=== PATIENT | female | born 1970 | race Caucasian/White ===

== ENCOUNTER → 2017-10-20 | Outpatient (CLI) | payer OTHER ==
[~2017-10-20] MED LIST: DULO60CA56 PO; ESCI20TA38 PO; EZE10 PO; LEVO100T95 PO; LOR5/325 PO; OMEP-114 PO
--- NOTE | 2017-10-20 17:08 | RADIOLOGY IMAGING REPORT ---
FACILITY: [facility] PATIENT NAME: Zayda Chery : 1970 MR: [id number] V: [id number] EXAM DATE: ORDERING PHYSICIAN: RO LOVE TECHNOLOGIST: Location: [facility] [place] Patient: Zayda Chery : 1970 Visit/Account:[id number] Date of Sevice: 10/20/2017 Venous Doppler ultrasound right lower extremity Indication: Right leg pain. Posterior knee bulge.. Comparison: None Available Findings: Duplex Doppler and color flow imaging was performed. The common femoral, femoral, and popl iteal veins are all patent and compressible with normal Doppler wave forms. There are normal respons es to augmentation. The posterior tibial and peroneal veins are patent in the calf. The proximal greater saphenous vein i s also normal. The soft tissues of the posterior knee does show prominent varicose veins which are patent. Subcutane ous tissues are otherwise unremarkable. IMPRESSION: 1. No evidence of deep venous thrombosis of the right. lower extremity. 2. The posterior soft tissues of the knee does show prominent varicose veins which appear patent. Report Dictated By: Trevon Kincaid at 10/20/2017 5:02 PM Report E-Signed By: Trevon Kincaid at 10/20/2017 5:04 PM WSN:[id number]
== END ==
LOC: US 15:18
PROVIDERS: ATTEND Nurse Practitioner Family
DX: I83.91 Asymptomatic varicose veins of right lower extremity (principal)